=== PATIENT | female | born 1980 | race Caucasian/White ===

== ENCOUNTER 2018-07-29 13:39 | Outpatient (CLI) | payer SELFPAY ==
[~2018-07-29] VITALS: Ht 170.2 cm; Wt 114.0 kg
[2018-07-29] MEDS ORDERED: PRENTAB9 PO (13:55)
[2018-07-29 14:10] VITALS: BP 126/77
[2018-07-29 14:21] VITALS: BP 109/56
[2018-07-29 14:29] VITALS: BP 149/74
[2018-07-29 14:32] VITALS: BP 112/57
[2018-07-29] MEDS ORDERED: ACETAMINOPHEN 500 MG TAB PO PRN (14:45)
[2018-07-29 14:48] VITALS: BP 112/54
== END 2018-07-29 15:45 ==
LOC: M LDO 13:39
PROVIDERS: ATTEND Specialist
DX: O26.893 Other specified pregnancy related conditions, third trimester (principal); R51 Headache; R03.0 Elevated blood-pressure reading, without diagnosis of hypertension; Z3A.35 35 weeks gestation of pregnancy
CPT/HCPCS: 59025; G0378; G0463

== ENCOUNTER 2018-09-17 12:07 | Inpatient (IN) | payer SELFPAY ==
[2018-09-17] VITALS (10 sets, daily range): BP systolic 134–157; BP diastolic 66–91
[~2018-09-17] VITALS: Ht 170.2 cm; Wt 120.5 kg
[~2018-09-17 12:07] MED LIST: PRENTAB9 PO
[2018-09-17] MEDS ORDERED: LACTATED RINGER'S 1000 ML IV STA (12:51)
[2018-09-17] MEDS ORDERED: PENICILLIN G POTASSIUM IV 5 MU in D5W MINI-BAG PLUS 100 ML IV STA (13:25)
[2018-09-17 13:29] LABS: HEMATOCRIT 39.5 % (36.0-47.0); MEAN CORPUSCULAR HEMOGLOBIN 30.4 pg (27.0-33.0); MEAN CORPUSCULAR HGB CONC 32.9 g/dl (32.0-36.5); MEAN CORPUSCULAR VOLUME 92.3 fl (80.0-96.0); PLATELET COUNT, AUTOMATED 199 10^3/uL (150-450); RED BLOOD COUNT 4.28 10^6/uL (4.00-5.40); WHITE BLOOD COUNT 12.1 10^3/uL (4.0-10.0)
[2018-09-17] MEDS ORDERED: OXYTOCIN DRIP 30 UNITS in APPROPRIATE DILUENT 1 EA IV SCH (13:30)
--- NOTE | 2018-09-17 13:43 | HPEPDOC ---
Obstetrical History & Physical General Date of Admission Sep 17, 2018 at 13:07 History of Present Illness Chief Complaint: Other (postterm ) Information Provided By: Patient Age: 37 : 5 Term: 2 Pre-term: 0 Abortions: 2 Livin Care Care: Limited Care ([facility]) Dating Final EDC: Aug 31, 2018 Final EDC by: LMP, 2nd trimester (US) EGA at Admission: 42 (+2) Antepartum Course Height (inches): 67 Pre- weight (lbs.): 200 Admission Weight (lbs.): 269 Past Medical History Past Obstetrical History #1: Past Obstetrical History: Primgravida (2002) Type of Delivery: Spontaneous Vaginal Del. Sex of : Female (7#10 ) Past Obstetrical History #2: Past Obstetrical History: Multigravida (2014) Type of Delivery: Spontaneous Vaginal Del. Sex of : Male (8#12) EXPEDITER CLERK History: Spontaneous (x2) Past Medical History Medical History depression, GHTN Surgical History: Denies/None Family History Significant Family History: No pertinent family hx Social History Social history Pt and partner are [facility] Marital Status: Family situation: Spouse/partner home Psychosocial History: Depression (, 2002) * Smoker: non-smoker Alcohol: Denies Drugs: denies Imunizations Tdap status: declined Allergies Coded Allergies: No Known Drug Allergy (Verified Allergy, Unknown, 07/29/18) Medications Scheduled Multivitamins/ ( 27-0.8 mg) 1 Tab Tab, 1 TAB PO DAILY Physical Examination Physical Examination GENERAL: Alert and oriented times three. BREAST: . ABDOMEN: Gravid and non-tender to touch. FETUS: Is vertex (VTX) by sterile vaginal examination (SVE), fetus is vertex (VTX) by Aiden. Presentation confirmed by bedside sono HEART RATE: Regular rate and rhythm. LUNGS: Clear to auscultation (CTA). EXTREMITIES: No edema. No clonus. Deep tendon reflexes (DTRs) + 2 Laboratory Data 24H LABS Laboratory Tests 2 09/17/18 13:08: CBC/BMP Anatomy Ultrasound Ultrasound Date: Apr 07, 2018 Placenta Location: Other (EGA 18w3d) Steroid Therapy Steroid Therapy: No Vaginal Examination Dilation: 1cm (-2) Effacement: 50% Station: -3 Cervical Consistency: Medium Cervical Position: Middle Presentation: Cephalic presentation Assessment Heart Rate (FHR): 145 Variability: Moderate Accelerations: Positive Tocometer Contractions: Yes Frequency: irregular Strength: palpated as mild Assessment/Plan Assessment Ada is a 37-year-old (G)5 para (P)2-0-2-2 at 42+2 weeks by 18-week ultrasound. Presents to Labor and Delivery (L&D) per consult Dr Kirk. Pt and partner are Scott. She has had limited care. Sono at 18wks confirmed LUCIO. Pt reports mild UC, denies LOF or bleeding. Fetus is active. Presentation confirmed by bedside sono. Plan Admit and orient. BP on admit 153/80 - preeclampsia panel ordered. Close BP observation during labor [employer] and consent. Diet: clear liquids. Group B Streptococcus (GBS) unknown, prophylaxis ordered. Labs and intravenous (IV) per unit protocol. Counseled on Pitocin and induction of labor (IOL). Lactated Ringers (LR): Bolus 500 mL, then at 125 mL/hr. Pt plans to labor ad ayan Anticipate normal spontaneous delivery () C-S as appropriate. Chapis Doty CNM Sep 17, 2018 13:43
[2018-09-17 15:16] LABS: HIV 1&2 SCREEN CENTAUR NEGATIVE (NEGATIVE)
[2018-09-17 15:18] LABS: ALT/SGPT 20 U/L (12-78); BILIRUBIN,TOTAL 0.3 MG/DL (0.2-1.0); CREATININE FOR GFR 0.58 MG/DL (0.55-1.30); GLOMERULAR FILTRATION RATE > 60.0 (>60); LDH LACTATE DEHYDROGENASE 161 U/L (84-246); URIC ACID 5.4 MG/DL (2.6-6.0)
[2018-09-17] MEDS: LR 1,000 ML IV SCH (17:53)
--- NOTE | 2018-09-17 20:42 | IPNPDOC ---
Text Note Date of Service The patient was seen on 09/17/18. NOTE SROM clear fluid 1827 Pitocin @ 6 mu UC 2-4 minutes apart, moderate FH 135, moderate variability, FSE placed SVE 2-/-3, fluid remains clear. Pt coping well at present. VS,Fishbone, I+O VS, Fishbone, I+O Laboratory Tests 09/17/18 13:08 Red Blood Count 4.28, Mean Corpuscular Volume 92.3, Mean Corpuscular Hemoglobin 30.4, Mean Corpuscular Hemoglobin Concent 32.9, Red Cell Distribution Width 13.0, Aspartate Amino Transf (AST/SGOT) 15, Alanine Aminotransferase (ALT/SGPT) 20, Lactate Dehydrogenase 161, Total Bilirubin 0.3, Uric Acid 5.4 Chapis Doty CNM Sep 17, 2018 20:42
[2018-09-17] MEDS: PENICILLIN G POTASSIUM IV 2.5 MU in APPROPRIATE DILUENT 1 EA IV SCH (22:06)
[2018-09-17] MEDS ORDERED: BUTORPHANOL 2 MG/ML INJ (J0595) IV ONE (23:45)
[2018-09-17] MEDS ORDERED: PROMETHAZINE INJ 25 MG/ML VIAL (J2550) IV ONE (23:45)
--- NOTE | 2018-09-17 23:50 | IPNPDOC ---
Text Note Date of Service The patient was seen on 09/17/18. NOTE Uncomfortable, requesting IV pain medication Pitocin @ 6 mu Sporadic variable decels otherwise Cat I tracing UC 2-4 minutes apart, strong SVE /-1, stretchy Stadol/phenergan IV. Anticipate NSVB VS,Fishbone, I+O VS, Fishbone, I+O Laboratory Tests 09/17/18 13:08 Red Blood Count 4.28, Mean Corpuscular Volume 92.3, Mean Corpuscular Hemoglobin 30.4, Mean Corpuscular Hemoglobin Concent 32.9, Red Cell Distribution Width 13.0, Aspartate Amino Transf (AST/SGOT) 15, Alanine Aminotransferase (ALT/SGPT) 20, Lactate Dehydrogenase 161, Total Bilirubin 0.3, Uric Acid 5.4 Chapis Doty CNM Sep 17, 2018 23:50
[2018-09-18] VITALS (26 sets, daily range): BP systolic 100–160; BP diastolic 52–99
[2018-09-18] MEDS: LR 1,000 ML IV SCH (00:04)
[2018-09-18] MEDS: PENICILLIN G POTASSIUM IV 2.5 MU in APPROPRIATE DILUENT 1 EA IV SCH (02:01)
--- NOTE | 2018-09-18 03:24 | IPNPDOC ---
Text Note Date of Service The patient was seen on 09/18/18. NOTE Pitocin @ 8mu UC 2-3 minutes apart, strong Strong urge to push. Persistent rim of cervix, unable to reduce despite position changes FH 135, early decels with UC that return to baseline, variability maintained Reviewed options. Continue position change, avoid pushing at the moment vs epidural. Pt and partner are discussing options. VS,Fishbone, I+O VS, Fishbone, I+O Laboratory Tests 09/17/18 13:08 Red Blood Count 4.28, Mean Corpuscular Volume 92.3, Mean Corpuscular Hemoglobin 30.4, Mean Corpuscular Hemoglobin Concent 32.9, Red Cell Distribution Width 13.0, Aspartate Amino Transf (AST/SGOT) 15, Alanine Aminotransferase (ALT/SGPT) 20, Lactate Dehydrogenase 161, Total Bilirubin 0.3, Uric Acid 5.4 Vital Signs Date Time Temp Pulse Resp B/P (MAP) Pulse Ox O2 Delivery O2 Flow Rate FiO2 09/18/18 00:03 18 Chapis Doty CNM Sep 18, 2018 03:24
[2018-09-18] MEDS ORDERED: FENTANYL 2MCG/ML ROPIVACAINE 0.2% IN 0.9% NACL 100ML IVBAG As Ordered ONE (03:32)
[2018-09-18] MEDS ORDERED: FENTANYL/ROPIVACAINE/NACL BAG 100 ML EPIDURAL SCH (03:47)
[2018-09-18] MEDS ORDERED: EPIDURAL COMMENT XX SCH (03:47)
[2018-09-18] MEDS ORDERED: REFRIGERATOR IV KEYS XX PRN (03:47)
[2018-09-18] MEDS ORDERED: ePHEDrine SULFATE 25 MG/5 ML(5MG/ML) SYRINGE IV PRN (03:47)
[2018-09-18] MEDS ORDERED: ONDANSETRON 4MG/2ML VIAL (J2405) IV PRN (03:47)
[2018-09-18] MEDS ORDERED: NALOXONE INJ 0.4 MG/1 ML VIAL (J2310) IV PRN (03:47)
[2018-09-18] MEDS ORDERED: EPIDURAL/PCA KEYS XX PRN (03:47)
[2018-09-18] MEDS ORDERED: diphenhydrAMINE INJ 50MG/ML VIAL (J1200) IV PRN (03:47)
--- NOTE | 2018-09-18 07:14 | DNPDOC ---
[facility] Delivery Note Delivery Note DATE OF DELIVERY: 09/18/18 PREDELIVERY DIAGNOSIS: 42-4/7 weeks' gestation and labor. POST DELIVERY DIAGNOSIS: Delivered. PROCEDURE: Spontaneous vaginal delivery PROVIDER: Chapis Doty CNM ANESTHESIA: Epidural. ESTIMATED BLOOD LOSS: 500 mL. FINDINGS: 10 pound 4 ounce, 4660gm female infant, Score 8/9, no nuchal cord. DELIVERY SUMMARY: Patient is a 37-year-old 5 now para 3-0-0-3 who was admitted to labor and delivery for postdates induction of labor. Penicillin G was given for unknown GBS status. Pitocin per protocol and labor did ensue. SROM clear fluid 1826. She utilized an epidural for labor coping. FD 0524. Viable female child delivered WALDEMAR @ 0612. Spontaneous respirations with stimulation, transitioned on maternal abdomen. Terminal meconium noted. Cord doubly clamped and cut once pulsations ceased. Apgars 8/9. Placenta robbins and intact with 3 v cord @ 0626. Fundus firmed with massage and IV pitocin bolus. Misoprostol 1000mcg PA given for persistent trickling. EBL 500ml. 2nd degree perineal laceration repaired with 3-0 vicryl rapide. Anterior vaginal wall cyst noted, approximated 2cm noted. Sponge sharp and instrument count correct. Chapis Doty CNM Sep 18, 2018 07:14
[2018-09-18] MEDS ORDERED: MEASLES,MUMPS,RUBELLA VACCINE INJ (MMR-II) (90707) SC SCH (07:15)
[2018-09-18] MEDS ORDERED: RHOGAM 300 MCG (1500 IU) INJ (J2790) IM SCH (07:15)
[2018-09-18] MEDS ORDERED: IBUPROFEN 800 MG TAB PO PRN (07:15)
[2018-09-18] MEDS ORDERED: ACETAMINOPHEN 500 MG TAB PO PRN (07:15)
[2018-09-18] MEDS ORDERED: METHYLERGONOVINE MALEATE 0.2 MG TAB PO PRN (07:15)
[2018-09-18] MEDS ORDERED: DIBUCAINE 1% OINTMENT 30GM TOP PRN (07:15)
[2018-09-18] MEDS ORDERED: miSOPROStol 200 MCG TAB (S0191) PR ONE (07:15)
[2018-09-18] MEDS ORDERED: ANUSOL HC CREAM 30GM TOP PRN (07:15)
[2018-09-18] MEDS ORDERED: DOCUSATE SODIUM 100 MG CAP PO PRN (07:15)
[2018-09-18] MEDS: PRENATAL VITAMINS CHEWABLE TABLET PO SCH (09:00)
[2018-09-19 06:00] VITALS: BP 134/73
[2018-09-19] MEDS ORDERED: MAPA500T2 PO (07:54)
[2018-09-19] MEDS ORDERED: IBUP-1114 PO (07:54)
[2018-09-19] MEDS: PRENATAL VITAMINS CHEWABLE TABLET PO SCH (09:00)
== END 2018-09-19 11:45 | disposition home or self-care (01) | DRG 560 ==
LOC: M LDO 12:07 → M LDI 13:07 → M OBS 09-18 09:08
PROVIDERS: ADMIT Advanced Practice Midwife; ATTEND Advanced Practice Midwife
PROC: 3E033VJ Introduction of Other Hormone into Peripheral Vein, Percutaneous Approach (ICD-10-PCS; 2018-09-17)
PROC: 10E0XZZ Delivery of Products of Conception, External Approach (ICD-10-PCS; principal; 2018-09-18)
PROC: 0KQM0ZZ Repair Perineum Muscle, Open Approach (ICD-10-PCS; 2018-09-18)
DX: O48.0 Post-term pregnancy (principal); Z3A.42 42 weeks gestation of pregnancy; O70.1 Second degree perineal laceration during delivery; Z37.0 Single live birth

== ENCOUNTER 2020-11-09 12:17 | Outpatient (CLI) | payer SELFPAY ==
[~2020-11-09] VITALS: Ht 170.2 cm; Wt 112.9 kg
[~2020-11-09 12:17] MED LIST changes: +IBUP-1114 PO; +MAPA500T2 PO
[2020-11-09 12:40] VITALS: BP 120/65
[2020-11-09 13:52] VITALS: BP 118/67
--- NOTE | 2020-11-09 13:56 | IPNPDOC ---
Text Note Date of Service The patient was seen on 11/09/20. NOTE Outpatient 40yo LUCIO approximately 12/09/2020. Presents at 35+ gestation. Reports home hospital plan administrator attempted to "turn the baby" Thursday and now "feels off, not the usual baby movement." Denies regular UC, LOF or bleeding. Patient and her spouse are Scott. Previous has been complicated by hypertension. Normotensive, alert, no distress. Partner is at bedside. NST Cat I Bedside sono initially showed head in upper left quadrant. Large movement became vertex. Discussed unstable lie with patient and partner. Desires to deliver at hospital. Consulted Dr Kirk. Rec after 39 wks. Scheduled per pt request @ 40w2d. Pt is reassured by status. Discharged home, instructions regarding access of care, induction protocol. VS,Fishbone, I+O VS, Fishbone, I+O Vital Signs Date Time Temp Pulse Resp B/P (MAP) Pulse Ox O2 Delivery O2 Flow Rate FiO2 11/09/20 12:40 99.1 82 16 120/65 (83) Chapis Doty CNM November 09, 2020 13:56
== END 2020-11-09 14:15 | disposition home or self-care (01) ==
LOC: M LDO 12:17
PROVIDERS: ATTEND Advanced Practice Midwife
DX: O36.8130 Decreased fetal movements, third trimester, not applicable or unspecified (principal); Z3A.35 35 weeks gestation of pregnancy; O32.0XX0 Maternal care for unstable lie, not applicable or unspecified; O09.513 Supervision of elderly primigravida, third trimester
CPT/HCPCS: 59025; 76815; G0378; G0463

== ENCOUNTER 2020-12-11 07:51 | Inpatient (IN) | payer SELFPAY ==
[~2020-12-11] VITALS: Ht 170.2 cm; Wt 116.0 kg
[2020-12-11] VITALS (8 sets, daily range): BP systolic 124–145; BP diastolic 68–90
--- NOTE | 2020-12-11 09:28 | HPEPDOC ---
Obstetrical History & Physical General Date of Admission Dec 11, 2020 at 07:51 History of Present Illness 40 yo female at 40 2/7 weeks by LMP (EDC=12/09/2020) presents for attempt at ECV to be followed by labor induction. She has had no care. She had one visit in triage where she was diagnosed as breech. Pt is Scott. 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, but has not had any testing done during the Past Medical History Past Obstetrical History : Past Obstetrical History: Multigravida Past Medical History Medical History OB hx: x 2018 10 # 4 oz med hx: none known surg: none Social History Marital Status: Family situation: Spouse/partner home Psychosocial History: No pertinent psych hx * Smoker: non-smoker Allergies Coded Allergies: No Known Drug Allergies (Verified Allergy, Unknown, 12/11/20) Medications Scheduled No.137/Iron/Folic Acd ( Vitamin Tablet) 1 Tab Tab, 1 TAB PO DAILY Scheduled PRN Acetaminophen (Mapap) 500 Mg Tab, 1,000 MG PO Q6HP PRN for MILD PAIN (PS 1-4) Ibuprofen (Ibuprofen) 400 Mg Tab, 800 MG PO Q6HP PRN for MODERATE PAIN (PS 5-7) Physical Examination Physical Examination GENERAL: Alert and oriented times three. BREAST: . ABDOMEN: Gravid and non-tender to touch. FETUS: Is vertex (VTX) by sterile vaginal examination (SVE), fetus is vertex (VTX) by Aiden. HEART RATE: Regular rate and rhythm. LUNGS: Clear to auscultation (CTA). EXTREMITIES: No edema. No clonus. Deep tendon reflexes (DTRs) + . Vaginal Examination Dilation: 1cm Effacement: 50% Station: -3 Cervical Consistency: Medium Cervical Position: Posterior Presentation: Cephalic presentation Assessment Variability: Moderate Accelerations: Positive Decelerations: None Tocometer Contractions: Yes Frequency: irregular Duration: less than 60 seconds Strength: palpated as mild Assessment/Plan Assessment Pt is a 40-year-old (G)6 para (P)3-0-2-3 at 40+5 weeks by LMP Presents to Labor and Delivery for induction. Plan Admit and orient. Diet: reg. Pt has had no care, so much is unknown High likelihood that she has gestational diabetes The fetus may be large, like her last baby, due to diabetes We plan to be prepared for shoulder dystocia I don't see the value in getting a growth ultrasound now; it is clear this baby will be large Group B Streptococcus (GBS) unknown .Anticipate [normal spontaneous delivery (). C-S as appropriate. WAGNER VELASQUEZ MD Dec 11, 2020 09:28
[2020-12-11] MEDS ORDERED: RA B200C PO (10:34)
[2020-12-11] MEDS ORDERED: B-10TAB2 PO (10:34)
[2020-12-11] MEDS ORDERED: EVEN500C3 PO (10:34)
[2020-12-11 10:35] LABS: BASO % 0.1 % (0.0-1.0); EOS # 0.1 10^3/uL (0.0-0.5); EOS % 1.4 % (0.0-3.0); HEMATOCRIT 38.3 % (36.0-47.0); HEMOGLOBIN 12.4 g/dl (12.0-15.5); LYMPH # 1.2 10^3/uL (1.5-5.0); LYMPH % 13.3 % (24.0-44.0); MEAN CORPUSCULAR HEMOGLOBIN 30.1 pg (27.0-33.0); MEAN CORPUSCULAR HGB CONC 32.4 g/dl (32.0-36.5); MONO # 0.6 10^3/uL (0.0-0.8); MONO % 6.8 % (2.0-8.0); NEUTROPHILS # 6.8 10^3/uL (1.5-8.5); NEUTROPHILS % 78.1 % (36.0-66.0); PLATELET COUNT, AUTOMATED 189 10^3/uL (150-450); RED BLOOD COUNT 4.12 10^6/uL (4.00-5.40); WHITE BLOOD COUNT 8.7 10^3/uL (4.0-10.0)
[2020-12-11 12:06] LABS: HEPATITIS C VIRUS ABY INDEX < 0.0 INDEX (<0.8); HIV 1&2 SCREEN CENTAUR NEGATIVE (NEGATIVE)
[2020-12-11] MEDS: miSOPROStol 50MCG 1/2 TABLET SL SCH ×2 (12:57→18:17)
[2020-12-12] VITALS (9 sets, daily range): BP systolic 105–153; BP diastolic 54–78
[2020-12-12] MEDS ORDERED: BUTORPHANOL 2 MG/ML INJ (J0595) IV ONE (02:20)
[2020-12-12] MEDS ORDERED: PROMETHAZINE INJ 25 MG/ML VIAL (J2550) IV ONE (02:20)
[2020-12-12] MEDS ORDERED: PENICILLIN G POTASSIUM IV 5 MU in D5W MINI-BAG PLUS 100 ML IV STA (02:51)
[2020-12-12] MEDS ORDERED: PENICILLIN G POTASSIUM IV 2.5 MU in IV 1 EA IV SCH ×2 (02:55→07:00)
[2020-12-12] MEDS ORDERED: OXYTOCIN 30 UNITS IN 0.9% NaCl 500ML IV BAG (J2590) As Ordered ONE (03:41)
[2020-12-12] MEDS ORDERED: LIDOCAINE 1% MDV 20ML VIAL As Ordered ONE (03:46)
[2020-12-12] MEDS ORDERED: IBUPROFEN 600MG TAB PO PRN (04:30)
[2020-12-12] MEDS ORDERED: RHOGAM 300 MCG (1500 IU) INJ (J2790) IM SCH (04:30)
[2020-12-12] MEDS ORDERED: METHYLERGONOVINE MALEATE 0.2 MG TAB PO PRN (04:30)
[2020-12-12] MEDS ORDERED: MEASLES,MUMPS,RUBELLA VACCINE INJ (MMR-II) (90707) SC SCH (04:30)
[2020-12-12] MEDS ORDERED: LIDOCAINE 1% MDV 20ML VIAL INFIL ONE (04:30)
[2020-12-12] MEDS ORDERED: DIBUCAINE 1% OINTMENT 30GM TOP PRN (04:30)
[2020-12-12] MEDS ORDERED: OXYTOCIN DRIP 30 UNITS in IV 1 EA IV ONE (04:30)
[2020-12-12] MEDS ORDERED: ONDANSETRON 4MG/2ML VIAL IV PRN (04:30)
[2020-12-12] MEDS ORDERED: ACETAMINOPHEN 500 MG TAB PO PRN (04:30)
[2020-12-12] MEDS ORDERED: IBUPROFEN 800 MG TAB PO PRN (04:30)
[2020-12-12] MEDS ORDERED: DOCUSATE SODIUM 100MG CAPSULE PO PRN (04:30)
[2020-12-12] MEDS ORDERED: ACETAMINOPHEN TAB 650MG DOSE (2X325MG) PO PRN (04:30)
--- NOTE | 2020-12-12 04:37 | DNPDOC ---
[facility] Delivery Note Delivery Note DATE OF DELIVERY: December 12, 2020 PREDELIVERY DIAGNOSIS: 40-2/7 weeks' gestation, labor induction. POST DELIVERY DIAGNOSIS: Delivered. PROCEDURE: Spontaneous vaginal delivery. CROSS ROLLER: Dr. Wagner Velasquez MD ANESTHESIA: none. ESTIMATED BLOOD LOSS: 300 mL. FINDINGS: 10 pound 5 ounce female , Score 8/9. DELIVERY SUMMARY: Patient is a 40-year-old 4 now para 4 who was admitted to labor and delivery for induction. She received 2 doses of Misoprostol. She had spontaneous rupture of membranes for meconium-stained fluid. After a 5 minute second stage of labor. She had spontaneous vaginal delivery of a 10 lbs. 5 oz. female . There was no nuchal cord. The shoulders delivered with ease. The was handed to the mother and cried spontaneously. The cord was doubly clamped and cut. The placenta delivered spontaneously and appeared to be intact. The patient received IV Pitocin immediately after delivery of placenta. A second-degree perineal lacerations repaired with 2-0 chromic under local anesthesia in the usual fashion. Sponge and needle counts were correct. WAGNER VELASQUEZ MD Dec 12, 2020 04:37
[2020-12-12] MEDS: PRENATAL VITAMINS CHEWABLE TABLET PO SCH (08:02)
[2020-12-13 06:01] VITALS: BP 124/73
[2020-12-13] MEDS: PRENATAL VITAMINS CHEWABLE TABLET PO SCH (09:00)
== END 2020-12-13 12:13 | disposition home or self-care (01) | DRG 560 ==
LOC: M LDI 07:51 → M OBS 12-12 09:10
PROVIDERS: ADMIT Specialist; ATTEND Specialist
PROC: 3E0P7GC Introduction of Other Therapeutic Substance into Female Reproductive, Via Natural or Artificial Opening (ICD-10-PCS; 2020-12-11)
PROC: 10E0XZZ Delivery of Products of Conception, External Approach (ICD-10-PCS; principal; 2020-12-12)
PROC: 0KQM0ZZ Repair Perineum Muscle, Open Approach (ICD-10-PCS; 2020-12-12)
DX: O48.0 Post-term pregnancy (principal); Z3A.40 40 weeks gestation of pregnancy; Z37.0 Single live birth; O77.0 Labor and delivery complicated by meconium in amniotic fluid; O70.1 Second degree perineal laceration during delivery; Z91.19 Patient's noncompliance with other medical treatment and regimen